=== PATIENT | male | born 1955 | race Caucasian/White ===

== ENCOUNTER 2018-08-21 14:42 | Inpatient (IN) ==
[2018-08-21] MEDS ORDERED: Isovue-370 500 ML INFUS..BTL IV ONE ×3 (17:20→22:22)
[2018-08-21] MEDS ORDERED: Naloxone 0.4 MG/ML INJ IVP PRN ×2 (17:25→22:22)
[2018-08-21] MEDS ORDERED: *HR* OxyCODONE Immed Rel 5 MG TABLET PO PRN ×2 (17:30→22:22)
[2018-08-21] MEDS ORDERED: Acetaminophen 325 MG TABLET PO PRN ×2 (17:30→22:22)
[2018-08-21] MEDS ORDERED: Ringers Solution, Lactated 1,000 ML IVC SCH (17:30)
[2018-08-21] MEDS ORDERED: *HR* HYDROcodone/Acet 5/325 mg TABLET PO PRN ×2 (17:30→22:22)
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
--- NOTE | 2018-08-21 17:56 | Anesthesia Evaluation PreOp ---
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) Other Medical History: Diabetes Type II, Other (hyponatremia, thrombocytopenia) Anesthesia History: Past Anesthesia (no prior surgery) Alcohol Use: none Drug use: none Medications and Allergies Divalproex (24 HR) [Depakote ER (24 HR)] 500 mg PO QAM 10/18/15 [History] Docusate [Colace] 100 mg PO AD PRN 10/18/15 [History] Acetaminophen [Tylenol] 650 mg PO Q6HR PRN 12/04/15 [History] Albuterol Sulfate [Ventolin Hfa] 2 puff IH Q6H PRN 12/04/15 [History] Doxycycline [Doxycycline] 100 mg PO DAILY 08/21/18 [History] Gemfibrozil [Lopid] 600 mg PO BID 08/21/18 [History] Haloperidol [Haloperidol] 1.5 mg PO TID 08/21/18 [History] Ibuprofen [Ibu] 800 mg PO Q8HR 08/21/18 [History] LORazepam [Ativan] 0.5 mg PO DAILY 08/21/18 [History] Lisinopril [Zestril] 5 mg PO DAILY 08/21/18 [History] Melatonin/Pyridoxine HCl (B6) [Melatonin 3 mg Tablet] 3 mg PO HS 08/21/18 [ History] Metformin HCl 500 mg PO DAILY 08/21/18 [History] Ranitidine HCl [Acid Ex Chef] 75 mg PO DAILY 08/21/18 [History] Sodium Chloride [Sodium Chloride Tab] 1 gm PO BID 08/21/18 [History] 3 Allergy/AdvReac Type Severity Reaction Status Date / Time No Known Allergies Allergy Verified 10/18/15 07:43 - Meds/Allergy Pre-op Review Medications Reviewed: Yes Allergies Reviewed: Yes Beta Blockers on Current Med List: No Anesthesia Results - Labs Laboratory Tests 08/21/18 08/21/18 12:30 12:30 WBC 18.5 H Hgb 11.7 L Hct 33.1 L Plt Count 68 L Sodium 121 L Potassium 4.3 BUN 18 Creatinine 0.91 - Imaging EKG: report reviewed (12/04/2015 SINUS RHYTHM WITH SINUS ARRHYTHMIA) Anesthesia Exam 3 Vital Signs BP 115/71 Pulse 88 Resp 20 O2 Sat 98% on O2 4L/NC Height: 5'8''/1.73m Weight: 173 lbs/78.7 kg - HEENT Pupil (Motor): EOMI Mallampati: III Teeth: Normal, Missing Denture Type: Upper: Complete Oral Opening: Greater than 3 - LARRY CAR OPERATOR LOC: Confused - Cardiac Rhythm: Regular Murmur: None - Pulmonary Breath Sounds: bilateral Clear Respiratory Effort: Symmetrical Anesthesia Assess/Plan ASA Score: 3 (Patient is cooperative and tranquil but confused. Consent obtained from guardian.) Anesthetic Plan: General Monitoring Plan: Standard Monitors Recovery Plan: PACU
[2018-08-21] MEDS ORDERED: Vancomycin (wt based) 1,000 MG VIAL IVPB SCH ×2 (18:00→22:22)
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
[2018-08-21] MEDS ORDERED: Albuterol 2.5 MG/3 ML NEBULIZER IH ONE (18:40)
[2018-08-21] MEDS ORDERED: Albuterol 2.5 MG/3 ML NEBULIZER ONE (18:42)
[2018-08-21] MEDS ORDERED: Bupivacaine/EPI 1:200k 0.5%PF 10 ML VIAL ONE (19:13)
[2018-08-21] MEDS ORDERED: Ondansetron 4 MG/2 ML VIAL IVP ONE ×2 (19:53→22:22)
[2018-08-21] MEDS ORDERED: *HR* HYDROmorphone (PF) 1 MG/ML SYRINGE IVP PRN ×2 (19:53→22:22)
[2018-08-21] MEDS ORDERED: *HR* Promethazine 25 MG/ML VIAL IVP PRN ×2 (19:53→22:22)
[2018-08-21] MEDS ORDERED: *HR* FentaNYL (PF) 100 MCG/2 ML VIAL ONE (19:59)
[2018-08-21] MEDS ORDERED: *HR* Propofol 200 MG/20 ML VIAL IVP ONE (19:59)
[2018-08-21] MEDS ORDERED: *HR* Midazolam HCl 2 MG/2 ML VIAL ONE (19:59)
[2018-08-21] MEDS ORDERED: *HR* Succinylcholine 200 MG/10 ML VIAL IVP ONE (20:01)
[2018-08-21] MEDS ORDERED: Dexamethasone 4 MG/ML VIAL ONE (20:01)
[2018-08-21] MEDS ORDERED: Lidocaine -MPF 2% 2 ML VIAL ONE (20:01)
[2018-08-21] MEDS ORDERED: *HR* PHENYLEPHRINE 1,000 MCG/10 ML SYRINGE IVP ONE (20:18)
[2018-08-21] MEDS ORDERED: Piperacillin/Tazobactam 3.375 GM in 0.9 % Sodium Chloride Mini Bag 100 ML IVPB SCH (21:00)
--- NOTE | 2018-08-21 21:27 | Orthopedic Operative Note ---
Date of procedure: 08/21/18 Procedure: OPERATIVE REPORT SURGEON: Isaac Dominguez MD PREOPERATIVE DIAGNOSIS: Left index finger necrotizing soft tissue infection POSTOPERATIVE DIAGNOSIS: Left index finger necrotizing soft tissue infection PROCEDURE: Left index ray amputation ANESTHESIA: Gen. anesthesia SPECIMENS: Left index ray PREOPERATIVE NOTE The surgical plan was reviewed with the patient. The risks, benefits, alternatives, and potential complications of this procedure were discussed with the patient including injury to veins, arteries, nerves, tendons, ligaments, and bone. Also discussed were the risks of infection, bleeding, pain, blood clots, the possible need for a blood transfusion, the possible need for further procedures, heart attack, stroke, and . Additional risks include the need for further debridement. All of this was explained in simple terms, and the patient verbalized understanding and wished to proceed. Consent was given to proceed with surgery. PROCEDURE: The patient was seen in the preoperative holding area where the identify and the consent were confirmed. The left index finger was marked. Final questions were answered. The patient was brought back to the operating room and placed supine on the operating room table. A huddle was performed with the patient and all vital surgical team members confirming patient identity, the correct procedure, and the correct operative site. Gen. anesthesia was administered. The operative extremity was prepped and draped in the usual sterile fashion. A surgical time out was performed immediately preceding the incision with all personnel in the operating room to confirm patient identity, the correct operative site and extremity, correct radiographic studies, availability of appropriate surgical equipment, and agreement on the planned procedure. The tourniquet was inflated without exsanguination. Attention was first directed to the dorsal aspect of the index finger where there was extensive dorsal necrotic skin which was incised longitudinally which decompressed copious amounts of purulent material which could also be milked from the dorsal hand. The incision was extended dorsally into the dorsal hand area draining copious amounts of foul-smelling purulent material which was cultured for aerobic and anaerobic organisms. Attention was redirected to the index finger where the dorsal skin was again evaluated and there was full-thickness necrosis which was sharply debrided back to healthy margins. Necrotic subcutaneous fat was debrided. The extensor apparatus distal to the PIP joint was necrotic and mostly dissolved by the infection and this was sharply debrided. There was involvement of the PIP joint as well. After all necrotic tissue was debrided back to healthy margins there is near complete loss of the dorsal skin of the index finger with complete exposure of the extensor apparatus proximal to the PIP joint. Given the significant soft tissue loss of the index finger (near complete loss of the dorsal skin and subcutaneous tissue), it was felt that salvage of the index finger would be impractical and would only prolong infection and illness to the patient, and the decision was made to proceed with amputation of the index ray which we had discussed prior to surgery as well. The extensor tendons were transected proximally in the dorsum of the hand and the index metacarpal was identified and cut with a sagittal saw distal to the insertion of the extensor carpi radialis longus. The first and second dorsal interosseous muscles were elevated off the index metacarpal and they were tenotomized at their insertions on the apparatus. Attention was directed to the volar side of the digit where a V-shaped was made over the metacarpophalangeal joint area and dissection proceeded carefully through subcutaneous tissue identifying the neurovascular bundles which were ligated. The flexor tendons were incised after being pulled distally to allow retraction and the index ray was from the hand and placed on the back table in formalin. The remaining soft tissue was healthy in appearance and there is no further necrotic tissue present in the hand. The wound was copiously irrigated and the incision was loosely closed over a [place] drain using interrupted nylon stitches with an excellent cosmetic appearance. A soft, sterile dressing was applied. The instrument, sponge, and needle counts were correct after wound closure. POST OPERATIVE PLAN: Continue IV antibiotics and follow cultures. We will keep the Coy drain until Saturday. Was there an congressional assistant present: No Estimated blood loss (cc): 1
--- NOTE | 2018-08-21 21:30 | Anesthesia Evaluation Post Op ---
Date of Encounter: 08/21/18 Time of Encounter: 21:28 - Lungs Lungs: Clear Ascult./Percussion - Airway Airway: Non-obstructed - Cardiovascular Regular Rate - Mental Status Mental Status: Alert & Oriented, Answers Appropriately - Pain Pain Scale: 0 Pain Scale used: Numeric (1 - 10) - Nausea Vomiting Nausea Vomiting: Not Present - Hydration Hydration: NPO, Has not voided - Discharge PostOp Status: Transfer Patient to floor
--- NOTE | 2018-08-21 22:50 | Sepsis Event Note ---
Sepsis Reassessment Note - Evaluation Sepsis Screen: No Definite Risk Current Stage of Sepsis: sepsis Possible Source of Sepsis: wound - Focused Exam Date of Encounter: 08/21/18 Time of Encounter: 22:50 Vital Signs: Vital Signs Temp Pulse Resp BP Pulse Ox 08/21/18 22:34 95 08/21/18 22:00 98.4 F 99 20 105/70 95 08/21/18 21:50 97 20 96/79 94 08/21/18 21:40 100 22 94/71 93 08/21/18 21:30 101 22 120/81 98 08/21/18 21:20 98.3 F 103 24 113/67 92 Respiratory Exam: Present: CTA bilaterally. Absent: wheezes, respiratory distress, accessory muscle use Cardiovascular Exam: Present: RRR, S1, S2. Absent: murmur, rubs, gallop Capillary Refill: < 2 seconds Peripheral Pulse Strength: 2+ slightly diminished Peripheral Pulse Location: Pedal Skin Exam: normal turgor
[2018-08-21 23:10] LABS: Red Cell Distribution Width 16.1 % (11.5-14.5)
[2018-08-21 23:11] LABS: Basophils % 0.3 %
[2018-08-21 23:12] LABS: Basophils # 0.1 K/mcL (0.0-0.2); Hematocrit 32.4 % (37.5-50.1); Immature Granulocytes % 1.8 % (0-4); Immature Platelets 16.9 % (1.1-6.1); Lymphocytes # 0.8 K/mcL (0.6-4.6); Lymphocytes % 4.1 %; Mean Corpuscular Hemoglobin 35.9 pg (28.0-33.3); Mean Corpuscular Volume 105.9 fL (83.0-100.0); Mean Platelet Volume 11.6 fL (9.4-12.4); Monocytes # 0.5 K/mcL (0.0-1.3); Monocytes % 2.7 %; Red Blood Count 3.06 M/mcL (4.19-5.50); Segmented Neutrophils % 91.1 %
[2018-08-21 23:27] LABS: BUN/Creatinine Ratio 20 (6-26); Blood Urea Nitrogen 14 mg/dL (8-23); Calcium 7.8 mg/dL (8.6-10.3); Carbon Dioxide 18 mEq/L (23-29); Chloride 98 mEq/L (98-107); Glucose 210 mg/dL (70-105); Osmolality,Calculated 265 (280-300); Potassium 5.1 mEq/L (3.5-5.1); Sodium 124 mEq/L (136-145); eGFR For Non-African Americans > 60 (> 60)
[2018-08-21] MEDS: Ringers Solution, Lactated 1,000 ML IVC SCH (23:36)
[2018-08-21] MEDS: *HR* Heparin 5,000 UNIT/ML VIAL SQ SCH (23:37)
[2018-08-21 23:45] LABS: Neutrophils # 17.9 K/mcL (1.6-8.9); Platelet Count 69 K/mcL (140-400)
[2018-08-21 23:51] LABS: Platelet Estimate Decreased (Normal)
[2018-08-22] MEDS ORDERED: *HR* Heparin 5,000 UNIT/ML VIAL SQ SCH
[2018-08-22] MEDS: Piperacillin/Tazobactam 3.375 GM in 0.9 % Sodium Chloride Mini Bag 100 ML IVPB SCH ×4 (00:18→23:37)
--- NOTE | 2018-08-22 08:08 | Orthopedics Progress Note ---
Date of Encounter: 08/22/18 Time of Encounter: 08:06 - Assessment and Plan (1) Cellulitis of left hand Current Visit: Yes Status: Acute Subjective Interval history: S: The patient is resting comfortably in bed Significant improvement of the pain to the left dorsal hand and wrist area O: Afebrile on the vital signs are stable Inspection shows improved swelling to the left hand Improvement in the erythema Penetrated place with minimal drainage No purulence He can grossly flex and extend the residual digits with some pain due to pain and swelling The fingertips are all grossly sensate and well-perfused, and the radial artery pulse is 2+. A: Postoperative day 1 after index ray resection due to necrotizing soft tissue infection P: Significant improvement of his symptoms. Continue IV antibiotics, broad-spectrum under the direction of the primary team Likely need at least 48 hours or more of IV antibiotics I did encourage range of motion exercises to the residual digits Elevation We will pull Coy drain tomorrow Objective Vital signs: Vital Signs Temp Pulse Resp BP Pulse Ox 08/22/18 07:18 98.3 F 98 16 107/61 94 08/22/18 04:31 97.6 F 105 18 105/57 96 08/22/18 01:20 97.8 F 86 18 111/79 94 08/22/18 00:20 97.8 F 88 18 111/71 95 08/21/18 23:20 97.8 F 93 18 111/75 94 08/21/18 22:50 97.6 F 92 19 101/70 95 08/21/18 22:34 95 08/21/18 22:20 97.9 F 94 20 108/69 94 08/21/18 22:00 98.4 F 99 20 105/70 95 08/21/18 21:50 97 20 96/79 94 08/21/18 21:40 100 22 94/71 93 08/21/18 21:30 101 22 120/81 98 08/21/18 21:20 98.3 F 103 24 113/67 92 Intake and Output 08/21/18 08/22/18 08/22/18 23:59 07:59 15:59 Intake Total 100 / 100 590 / 590 Output Total 251 / 251 Balance -151 / -151 590 / 590 Intake: IV Fluids 350 / 350 Zosyn 3.375 GM In 0.9 % Sodium 100 / 100 Chloride (Mini-Bag +) 100 ML @ 25 mls/hr IVPB Q8H [facility] Rx#: [id number] Vancocin 1,250 MG In 0.9 % 250 / 250 Sodium Chloride 250 ML @ 166.67 mls/hr IVPB Q12H [facility] Rx#: [id number] Oral 100 / 100 240 / 240 Output: Urine 250 / 250 Estimated Blood Loss Other: # Voids 1 1 Weight 78.7 kg 78.6 kg Patient Weight 08/22/18 23:59 Weight 78.6 kg - Labs CBC & BMP: 08/21/18 22:50 08/21/18 22:50 Labs: Abnormal lab results WBC 19.6 K/mcL (4.3-11.1) H 08/21/18 22:50 RBC 3.06 M/mcL (4.19-5.50) L 08/21/18 22:50 Hgb 11.0 g/dL (12.9-16.9) L 08/21/18 22:50 Hct 32.4 % (37.5-50.1) L 08/21/18 22:50 MCV 105.9 fL (83.0-100.0) H 08/21/18 22:50 MCH 35.9 pg (28.0-33.3) H 08/21/18 22:50 RDW 16.1 % (11.5-14.5) H 08/21/18 22:50 Plt Count 69 K/mcL (140-400) L 08/21/18 22:50 Neutrophils # 17.9 K/mcL (1.6-8.9) H 08/21/18 22:50 Platelet Estimate Decreased (Normal) L 08/21/18 22:50 Immature Plt Fraction 16.9 % (1.1-6.1) H 08/21/18 22:50 Sodium 124 mEq/L (136-145) L 08/21/18 22:50 Carbon Dioxide 18 mEq/L (23-29) L 08/21/18 22:50 Glucose 210 mg/dL (70-105) H 08/21/18 22:50 Calculated Osmolality 265 (280-300) L 08/21/18 22:50 Calcium 7.8 mg/dL (8.6-10.3) L 08/21/18 22:50 Consult Discharge Plan - Plan Referrals: Anson Mehta MD [Primary Care Provider] -
[2018-08-22] MEDS: *HR* Heparin 5,000 UNIT/ML VIAL SQ SCH ×3 (09:24→23:37)
[2018-08-22] MEDS ORDERED: *HR* Dextrose 50 % in Water (Syg) 50 ML SYRINGE IVP PRN (12:36)
[2018-08-22] MEDS ORDERED: D5% in Water 1,000 ML IVC PRN (12:36)
[2018-08-22] MEDS ORDERED: Dextrose Gel 15 GM/37.5 ML TUBE PO PRN ×2 (12:36)
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
[2018-08-22 15:08] LABS: Hematocrit 29.5 % (37.5-50.1); Mean Corpuscular HGB Conc 33.9 g/dL (31.6-35.5)
[2018-08-22 15:10] LABS: Immature Platelets 16.3 % (1.1-6.1); Mean Corpuscular Hemoglobin 35.5 pg (28.0-33.3); Mean Corpuscular Volume 104.6 fL (83.0-100.0); Mean Platelet Volume 11.6 fL (9.4-12.4); Red Blood Count 2.82 M/mcL (4.19-5.50); Red Cell Distribution Width 16.1 % (11.5-14.5)
[2018-08-22 15:21] LABS: Platelet Count 87 K/mcL (140-400)
[2018-08-22 15:27] LABS: BUN/Creatinine Ratio 25 (6-26); Blood Urea Nitrogen 15 mg/dL (8-23); C-Reactive Protein 237 mg/L (Less than 10); Calcium 7.8 mg/dL (8.6-10.3); Carbon Dioxide 21 mEq/L (23-29); Chloride 95 mEq/L (98-107); Creatine Kinase 147 Units/L (30-223); Glucose 234 mg/dL (70-105); Osmolality,Calculated 266 (280-300); Potassium 4.3 mEq/L (3.5-5.1); Sodium 124 mEq/L (136-145); eGFR For Non-African Americans > 60 (> 60)
[2018-08-22 15:39] LABS: Lymphocytes # 2.7 K/mcL (0.6-4.6); Neutrophils # 13.7 K/mcL (1.6-8.9)
[2018-08-22 15:41] LABS: Platelet Estimate Slight Decrease (Normal)
[2018-08-22 15:47] LABS: Anisocytosis 1+ (Not Present)
[2018-08-22] MEDS ORDERED: Ibuprofen 800 MG TABLET PO SCH (16:00)
[2018-08-22] MEDS: Insulin LISPRO 300 UNITS/3 ML VIAL SQ SCH ×2 (17:06→20:24)
[2018-08-22] MEDS: Famotidine 20 MG TABLET PO SCH (17:06)
[2018-08-22] MEDS: Melatonin 3 MG TABLET PO SCH (20:23)
[2018-08-22] MEDS: Divalproex (24 HR) 500 MG TABLET PO SCH (20:24)
[2018-08-22] MEDS: Budesonide/Formoterol 160/4.5 1 PUFF INH IH SCH (22:18)
[2018-08-23 01:15] LABS: Hematocrit 28.5 % (37.5-50.1); Hemoglobin 9.7 g/dL (12.9-16.9); Mean Corpuscular Hemoglobin 35.3 pg (28.0-33.3); Mean Corpuscular Volume 103.6 fL (83.0-100.0); Mean Platelet Volume 11.5 fL (9.4-12.4); Red Blood Count 2.75 M/mcL (4.19-5.50); Red Cell Distribution Width 16.2 % (11.5-14.5)
[2018-08-23 01:16] LABS: Platelet Count 67 K/mcL (140-400)
[2018-08-23 01:30] LABS: Platelet Estimate Decreased (Normal)
[2018-08-23 01:33] LABS: Large Platelets Present (Not Present); Lymphocytes # 3.3 K/mcL (0.6-4.6); Monocytes # 0.6 K/mcL (0.0-1.3); Neutrophils # 11.1 K/mcL (1.6-8.9); Reactive Lymphocytes Present (Not Present)
[2018-08-23 01:43] LABS: BUN/Creatinine Ratio 23 (6-26); Blood Urea Nitrogen 15 mg/dL (8-23); Calcium 7.8 mg/dL (8.6-10.3); Carbon Dioxide 22 mEq/L (23-29); Chloride 97 mEq/L (98-107); Glucose 173 mg/dL (70-105); Osmolality,Calculated 267 (280-300); Potassium 4.3 mEq/L (3.5-5.1); Sodium 126 mEq/L (136-145); eGFR For Non-African Americans > 60 (> 60)
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
[2018-08-23] MEDS: Ringers Solution, Lactated 1,000 ML IVC SCH (07:57)
[2018-08-23] MEDS: Famotidine 20 MG TABLET PO SCH ×2 (08:04→16:25)
[2018-08-23] MEDS: *HR* LORazepam 0.5 MG TABLET PO SCH (08:04)
[2018-08-23] MEDS: *HR* Heparin 5,000 UNIT/ML VIAL SQ SCH ×2 (08:05→16:26)
[2018-08-23] MEDS: Piperacillin/Tazobactam 3.375 GM in 0.9 % Sodium Chloride Mini Bag 100 ML IVPB SCH ×2 (08:05→16:26)
[2018-08-23] MEDS: Insulin LISPRO 300 UNITS/3 ML VIAL SQ SCH ×4 (08:06→22:00)
[2018-08-23] MEDS: Budesonide/Formoterol 160/4.5 1 PUFF INH IH SCH ×2 (10:38→20:13)
--- NOTE | 2018-08-23 15:04 | Orthopedics Progress Note ---
Date of Encounter: 08/23/18 Time of Encounter: 15:00 Subjective Principal diagnosis: Right hand abscess with index finger necrotizing infection Interval history: The patient is resting comfortably in chair No complaints of pain Right upper extremity: Ulnar gutter cast is intact, good motion of exposed digits. Left upper extremity: Dressings taken down and drains pulled, amputation stump appears intact mild swelling to the left hand Moderate erythema mild purulent drainage He can grossly flex and extend the residual digits with some pain due to pain and swelling The fingertips are all grossly sensate and well-perfused, although some pallor noted in all fingers A: Postoperative day 2 after index ray resection due to necrotizing soft tissue infection Cultures, gram-positive cocci P: Significant improvement of his symptoms. Continue IV antibiotics, broad-spectrum under the direction of the primary team Start soap and water washers, 3 times a day I did encourage range of motion exercises to the residual digits Elevation Objective Vital signs: Vital Signs Temp Pulse Resp BP Pulse Ox 08/23/18 10:59 98.2 F 78 16 147/74 93 08/23/18 10:39 91 08/23/18 07:20 97.6 F 82 16 148/85 90 08/23/18 04:40 98.4 F 90 16 108/68 97 08/23/18 00:18 99.1 F 88 16 99/54 90 08/22/18 20:30 98 08/22/18 18:48 98.7 F 84 16 113/68 98 Intake and Output 08/22/18 08/23/18 08/23/18 23:59 07:59 15:59 Intake Total 100 / 100 590 / 590 340 / 340 Output Total 250 / 250 400 / 400 Balance -150 / -150 190 / 190 340 / 340 Intake: IV Fluids 100 / 100 350 / 350 100 / 100 Zosyn 3.375 GM In 0.9 % Sodium 100 / 100 100 / 100 100 / 100 Chloride (Mini-Bag +) 100 ML @ 25 mls/hr IVPB Q8H [facility] Rx#: [id number] Vancocin 1,250 MG In 0.9 % 250 / 250 Sodium Chloride 250 ML @ 166.67 mls/hr IVPB Q12H [facility] Rx#: [id number] Oral 240 / 240 240 / 240 Output: Urine 250 / 250 400 / 400 Other: Meal Lunch Percent of Meal Consumed 80% Stool Size Large Moderate Stool Consistency formed soft formed Stool Color Brown # Voids 1 1 # Bowel Movements 1 1 Weight 78.9 kg Blood Glucose* 207 305 172 Patient Weight 08/23/18 23:59 Weight 78.9 kg - Labs CBC & BMP: 08/23/18 00:56 08/23/18 00:56 Labs: Abnormal lab results WBC 15.0 K/mcL (4.3-11.1) H 08/23/18 00:56 RBC 2.75 M/mcL (4.19-5.50) L 08/23/18 00:56 Hgb 9.7 g/dL (12.9-16.9) L 08/23/18 00:56 Hct 28.5 % (37.5-50.1) L 08/23/18 00:56 MCV 103.6 fL (83.0-100.0) H 08/23/18 00:56 MCH 35.3 pg (28.0-33.3) H 08/23/18 00:56 RDW 16.2 % (11.5-14.5) H 08/23/18 00:56 Plt Count 67 K/mcL (140-400) L 08/23/18 00:56 Band Neutrophils % 6.0 % (0-4) H 08/22/18 14:35 Metamyelocytes % 2.0 % (0) H 08/22/18 14:35 Myelocytes % 2.0 % (0) H 08/22/18 14:35 Neutrophils # 11.1 K/mcL (1.6-8.9) H 08/23/18 00:56 Reactive Lymphocytes Present (Not Present) A 08/23/18 00:56 Platelet Estimate Decreased (Normal) L 08/23/18 00:56 Large Platelets Present (Not Present) A 08/23/18 00:56 Immature Plt Fraction 16.3 % (1.1-6.1) H 08/22/18 14:35 Anisocytosis 1+ (Not Present) A 08/22/18 14:35 ESR 84 mm/hr (0-10) H 08/22/18 14:35 Sodium 126 mEq/L (136-145) L 08/23/18 00:56 Chloride 97 mEq/L (98-107) L 08/23/18 00:56 Carbon Dioxide 22 mEq/L (23-29) L 08/23/18 00:56 Creatinine 0.66 mg/dL (0.70-1.30) L 08/23/18 00:56 Glucose 173 mg/dL (70-105) H 08/23/18 00:56 POC Glucose 172 mg/dL (70-99) H 08/23/18 10:57 Calculated Osmolality 267 (280-300) L 08/23/18 00:56 Calcium 7.8 mg/dL (8.6-10.3) L 08/23/18 00:56 C-Reactive Protein 237 mg/L (Less than 10) H 08/22/18 14:35 Consult Discharge Plan - Plan Referrals: Anson Mehta MD [Primary Care Provider] -
[2018-08-23] MEDS: Melatonin 3 MG TABLET PO SCH (21:58)
[2018-08-23] MEDS: Divalproex (24 HR) 500 MG TABLET PO SCH (21:58)
[2018-08-24] MEDS: Piperacillin/Tazobactam 3.375 GM in 0.9 % Sodium Chloride Mini Bag 100 ML IVPB SCH ×3 (01:20→17:04)
[2018-08-24] MEDS: *HR* Heparin 5,000 UNIT/ML VIAL SQ SCH ×4 (01:20→23:34)
[2018-08-24 07:22] LABS: Red Cell Distribution Width 15.7 % (11.5-14.5)
[2018-08-24 07:23] LABS: Hematocrit 30.9 % (37.5-50.1); Hemoglobin 10.2 g/dL (12.9-16.9); Immature Platelets 16.6 % (1.1-6.1); Mean Corpuscular Hemoglobin 34.6 pg (28.0-33.3); Mean Corpuscular Volume 104.7 fL (83.0-100.0); Mean Platelet Volume 11.5 fL (9.4-12.4); Red Blood Count 2.95 M/mcL (4.19-5.50)
[2018-08-24 07:46] LABS: BUN/Creatinine Ratio 17 (6-26); Blood Urea Nitrogen 9 mg/dL (8-23); Calcium 8.2 mg/dL (8.6-10.3); Carbon Dioxide 22 mEq/L (23-29); Chloride 95 mEq/L (98-107); Glucose 163 mg/dL (70-105); Magnesium 1.5 mg/dL (1.6-2.6); Osmolality,Calculated 264 (280-300); Potassium 4.1 mEq/L (3.5-5.1); Sodium 126 mEq/L (136-145); eGFR For Non-African Americans > 60 (> 60)
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
[2018-08-24] MEDS: *HR* LORazepam 0.5 MG TABLET PO SCH (08:21)
[2018-08-24] MEDS: Famotidine 20 MG TABLET PO SCH ×2 (08:21→17:01)
[2018-08-24] MEDS: Insulin LISPRO 300 UNITS/3 ML VIAL SQ SCH ×4 (08:27→22:27)
[2018-08-24] MEDS: Budesonide/Formoterol 160/4.5 1 PUFF INH IH SCH ×2 (10:23→20:15)
--- NOTE | 2018-08-24 10:59 | Orthopedics Progress Note ---
Date of Encounter: 08/24/18 Time of Encounter: 10:56 Subjective Principal diagnosis: Right hand abscess with index finger necrotizing infection Interval history: The patient is resting comfortably in chair No complaints of pain Right upper extremity: Ulnar gutter cast is intact, good motion of exposed digits. Left upper extremity: Dressings taken down, and moderate serosanguineous drainage, no purulent drainage The surgical wound is otherwise intact. Still has moderate erythema and swelling on dorsum of hand mild purulent drainage He can grossly flex and extend the residual digits with some pain due to pain and swelling The fingertips are all grossly sensate and well-perfused, although some pallor noted in all fingers A: Postoperative day 3 after index ray resection due to necrotizing soft tissue infection Improving clinically but cellulitis is still fairly angry appearing Cultures: Strep intermedius P: Tailor IV antibiotics Continue soap and water washers, 3 times a day I did encourage range of motion exercises to the residual digits Elevation Possible discharge tomorrow Objective Vital signs: Vital Signs Temp Pulse Resp BP Pulse Ox 08/24/18 10:25 16 94 08/24/18 07:17 98.4 F 68 16 112/72 91 08/24/18 03:30 99.0 F 71 17 146/81 96 08/23/18 22:13 99.2 F 72 16 142/77 99 08/23/18 20:13 18 92 08/23/18 18:45 97.8 F 77 18 125/68 96 08/23/18 16:13 83 16 122/76 93 08/23/18 10:59 98.2 F 78 16 147/74 93 Intake and Output 08/23/18 08/24/18 08/24/18 23:59 07:59 15:59 Intake Total 100 / 100 440 / 440 250 / 250 Output Total 350 / 350 400 / 400 Balance -250 / -250 440 / 440 -150 / -150 Intake: IV Fluids 100 / 100 100 / 100 Zosyn 3.375 GM In 0.9 % Sodium 100 / 100 100 / 100 Chloride (Mini-Bag +) 100 ML @ 25 mls/hr IVPB Q8H [facility] Rx#: [id number] Oral 0 / 0 340 / 340 250 / 250 Output: Urine 350 / 350 400 / 400 Other: Meal Breakfast Percent of Meal Consumed 50% Stool Size Small Large Stool Consistency liquid loose Stool Color Brown Brown # Voids 1 1 # Bowel Movements 1 Blood Glucose* 243 219 - Labs CBC & BMP: 08/24/18 06:28 08/24/18 06:28 Labs: Abnormal lab results RBC 2.95 M/mcL (4.19-5.50) L 08/24/18 06:28 Hgb 10.2 g/dL (12.9-16.9) L 08/24/18 06:28 Hct 30.9 % (37.5-50.1) L 08/24/18 06:28 MCV 104.7 fL (83.0-100.0) H 08/24/18 06:28 MCH 34.6 pg (28.0-33.3) H 08/24/18 06:28 RDW 15.7 % (11.5-14.5) H 08/24/18 06:28 Plt Count 82 K/mcL (140-400) L 08/24/18 06:28 Band Neutrophils % 6.0 % (0-4) H 08/22/18 14:35 Metamyelocytes % 2.0 % (0) H 08/22/18 14:35 Myelocytes % 2.0 % (0) H 08/22/18 14:35 Neutrophils # 11.1 K/mcL (1.6-8.9) H 08/23/18 00:56 Reactive Lymphocytes Present (Not Present) A 08/23/18 00:56 Platelet Estimate Decreased (Normal) L 08/23/18 00:56 Large Platelets Present (Not Present) A 08/23/18 00:56 Immature Plt Fraction 16.6 % (1.1-6.1) H 08/24/18 06:28 Anisocytosis 1+ (Not Present) A 08/22/18 14:35 ESR 84 mm/hr (0-10) H 08/22/18 14:35 Sodium 126 mEq/L (136-145) L 08/24/18 06:28 Chloride 95 mEq/L (98-107) L 08/24/18 06:28 Carbon Dioxide 22 mEq/L (23-29) L 08/24/18 06:28 Creatinine 0.54 mg/dL (0.70-1.30) L 08/24/18 06:28 Glucose 163 mg/dL (70-105) H 10/14/18 06:28 POC Glucose 219 mg/dL (70-99) H 08/24/18 07:16 Calculated Osmolality 264 (280-300) L 08/24/18 06:28 Calcium 8.2 mg/dL (8.6-10.3) L 08/24/18 06:28 Magnesium 1.5 mg/dL (1.6-2.6) L 08/24/18 06:28 C-Reactive Protein 237 mg/L (Less than 10) H 08/22/18 14:35 Consult Discharge Plan - Plan Referrals: Anson Mehta MD [Primary Care Provider] -
[2018-08-24] MEDS ORDERED: cefTRIAXone 2,000 MG in Water for inj. (sterile) 20 ML 20 ML IVP SCH (18:00)
[2018-08-24] MEDS: Melatonin 3 MG TABLET PO SCH (22:27)
[2018-08-24] MEDS: Divalproex (24 HR) 500 MG TABLET PO SCH (22:27)
[2018-08-25 03:43] LABS: Hematocrit 30.9 % (37.5-50.1); Hemoglobin 10.4 g/dL (12.9-16.9); Immature Platelets 14.6 % (1.1-6.1); Mean Corpuscular HGB Conc 33.7 g/dL (31.6-35.5); Mean Corpuscular Hemoglobin 34.9 pg (28.0-33.3); Mean Corpuscular Volume 103.7 fL (83.0-100.0); Mean Platelet Volume 11.6 fL (9.4-12.4); Red Blood Count 2.98 M/mcL (4.19-5.50); Red Cell Distribution Width 15.6 % (11.5-14.5)
[2018-08-25 03:55] LABS: Alanine Aminotransferase 43 Units/L (7-52); Albumin 2.9 g/dL (3.5-5.7); Alkaline Phosphatase 50 Units/L (34-104); Aspartate Amino Transferase 25 Units/L (13-39); BUN/Creatinine Ratio 16 (6-26); Bilirubin,Total 0.3 mg/dL (0.3-1.0); Blood Urea Nitrogen 10 mg/dL (8-23); Calcium 8.4 mg/dL (8.6-10.3); Carbon Dioxide 25 mEq/L (23-29); Chloride 96 mEq/L (98-107); Globulin 2.9 g/dL (2.4-3.5); Glucose 140 mg/dL (70-105); Magnesium 1.6 mg/dL (1.6-2.6); Osmolality,Calculated 267 (280-300); Potassium 4.2 mEq/L (3.5-5.1); Sodium 128 mEq/L (136-145); Total Protein 5.8 g/dL (6.4-8.9); eGFR For Non-African Americans > 60 (> 60)
--- NOTE | 2018-08-25 08:15 | Orthopedics Progress Note ---
Date of Encounter: 08/25/18 Time of Encounter: 08:12 - Assessment and Plan (1) Cellulitis of left hand Current Visit: Yes Status: Acute Subjective Principal diagnosis: Right hand abscess with index finger necrotizing infection Interval history: S: The patient is resting comfortably in a chair Significant improvement of the pain to the left dorsal hand and wrist area over the weekend O: Afebrile on the vital signs are stable Persistent cellulitis, but improved from Saturday I could milk a small amount of purulence proximally, and therefore I removed a couple of the proximal stitches to decompress it and cleansed with peroxide He can grossly flex and extend the residual digits with some pain due to pain and swelling The fingertips are all grossly sensate and well-perfused, and the radial artery pulse is 2+. A: Post left index ray resection for soft tissue infection P: Notable improvement in the CRP and WBC count Celluitis slow to improve Anticipate about 24 more hours of IV Abx If continued pus tomorrow, may do 2nd look I and D tomorrow Continue elevation and motion exercises. Objective Vital signs: Vital Signs Temp Pulse Resp BP Pulse Ox 08/25/18 07:48 98.2 F 68 16 130/77 98 08/25/18 04:53 98.6 F 69 18 134/69 98 08/25/18 00:33 98.1 F 75 17 141/71 94 08/24/18 20:17 98.6 F 78 17 115/65 98 08/24/18 20:15 16 99 08/24/18 16:55 97.5 F L 72 16 146/76 91 08/24/18 11:14 97.4 F L 67 14 130/71 95 08/24/18 10:25 16 94 Intake and Output 08/24/18 08/25/18 08/25/18 23:59 07:59 15:59 Intake Total 240 / 240 224 / 224 Output Total 250 / 250 Balance -10 - 224 / 224 Intake: IV Fluids 224 / 224 Rocephin 2,000 MG In Water for inj. (sterile) 20 ML @ 600 mls/ hr IVP Q24H [facility] Rx#:[id number] Oral 240 / 240 Output: Urine 250 / 250 Other: Meal Dinner Percent of Meal Consumed 70% Stool Size Moderate Stool Consistency soft Stool Characteristics Normal for Patient Stool Color Brown # Voids 1 1 # Bowel Movements 1 Blood Glucose* 188 142 - Labs CBC & BMP: 08/25/18 03:24 08/25/18 03:24 Labs: Abnormal lab results RBC 2.98 M/mcL (4.19-5.50) L 08/25/18 03:24 Hgb 10.4 g/dL (12.9-16.9) L 08/25/18 03:24 Hct 30.9 % (37.5-50.1) L 08/25/18 03:24 MCV 103.7 fL (83.0-100.0) H 08/25/18 03:24 MCH 34.9 pg (28.0-33.3) H 08/25/18 03:24 RDW 15.6 % (11.5-14.5) H 08/25/18 03:24 Plt Count 75 K/mcL (140-400) L 08/25/18 03:24 Band Neutrophils % 6.0 % (0-4) H 08/22/18 14:35 Metamyelocytes % 2.0 % (0) H 08/22/18 14:35 Myelocytes % 2.0 % (0) H 08/22/18 14:35 Neutrophils # 11.1 K/mcL (1.6-8.9) H 08/23/18 00:56 Reactive Lymphocytes Present (Not Present) A 08/23/18 00:56 Platelet Estimate Decreased (Normal) L 08/23/18 00:56 Large Platelets Present (Not Present) A 08/23/18 00:56 Immature Plt Fraction 14.6 % (1.1-6.1) H 08/25/18 03:24 Anisocytosis 1+ (Not Present) A 08/22/18 14:35 ESR 72 mm/hr (0-10) H 08/24/18 13:49 Sodium 128 mEq/L (136-145) L 08/25/18 03:24 Chloride 96 mEq/L (98-107) L 08/25/18 03:24 Creatinine 0.61 mg/dL (0.70-1.30) L 08/25/18 03:24 Glucose 140 mg/dL (70-105) H 08/25/18 03:24 POC Glucose 188 mg/dL (70-99) H 08/24/18 20:16 Calculated Osmolality 267 (280-300) L 08/25/18 03:24 Calcium 8.4 mg/dL (8.6-10.3) L 08/25/18 03:24 C-Reactive Protein 51 mg/L (Less than 10) H 08/24/18 13:49 Serum Total Protein 5.8 g/dL (6.4-8.9) L 08/25/18 03:24 Albumin 2.9 g/dL (3.5-5.7) L 08/25/18 03:24 Albumin/Globulin Ratio 1.0 (1.1-2.2) L 08/25/18 03:24 Consult Discharge Plan - Plan Referrals: Anson Mehta MD [Primary Care Provider] -
[2018-08-25] MEDS: Famotidine 20 MG TABLET PO SCH ×2 (08:36→16:39)
[2018-08-25] MEDS: *HR* Heparin 5,000 UNIT/ML VIAL SQ SCH ×2 (08:36→16:38)
[2018-08-25] MEDS: *HR* LORazepam 0.5 MG TABLET PO SCH (08:36)
[2018-08-25] MEDS: Insulin LISPRO 300 UNITS/3 ML VIAL SQ SCH ×4 (08:37→22:36)
[2018-08-25] MEDS: Budesonide/Formoterol 160/4.5 1 PUFF INH IH SCH ×2 (10:30→19:42)
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
[2018-08-25] MEDS: Piperacillin/Tazobactam 3.375 GM in 0.9 % Sodium Chloride Mini Bag 100 ML IVPB SCH ×2 (13:50→21:10)
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
[2018-08-25] MEDS: Divalproex (24 HR) 500 MG TABLET PO SCH (21:09)
[2018-08-25] MEDS: Melatonin 3 MG TABLET PO SCH (21:09)
[2018-08-26] MEDS: *HR* Heparin 5,000 UNIT/ML VIAL SQ SCH ×4 (00:23→23:43)
[2018-08-26] MEDS: Piperacillin/Tazobactam 3.375 GM in 0.9 % Sodium Chloride Mini Bag 100 ML IVPB SCH ×2 (05:49→13:23)
[2018-08-26 06:04] LABS: Hematocrit 30.6 % (37.5-50.1); Immature Granulocytes % 0.7 % (0-4)
[2018-08-26 06:06] LABS: Basophils % 0.3 %; Eosinophils # 0.1 K/mcL (0.0-0.6); Eosinophils % 0.9 %; Hemoglobin 10.4 g/dL (12.9-16.9); Immature Platelets 15.8 % (1.1-6.1); Lymphocytes # 2.3 K/mcL (0.6-4.6); Lymphocytes % 32.9 %; Mean Corpuscular Hemoglobin 34.7 pg (28.0-33.3); Mean Platelet Volume 11.8 fL (9.4-12.4); Monocytes # 0.6 K/mcL (0.0-1.3); Monocytes % 8.2 %; Nucleated Red Blood Cells 0.4 /100 WBC (0); Red Cell Distribution Width 15.6 % (11.5-14.5)
[2018-08-26 06:08] LABS: Platelet Count 85 K/mcL (140-400)
[2018-08-26 06:27] LABS: BUN/Creatinine Ratio 15 (6-26); Blood Urea Nitrogen 8 mg/dL (8-23); Calcium 8.5 mg/dL (8.6-10.3); Carbon Dioxide 24 mEq/L (23-29); Chloride 96 mEq/L (98-107); Glucose 156 mg/dL (70-105); Osmolality,Calculated 268 (280-300); Sodium 128 mEq/L (136-145); eGFR For Non-African Americans > 60 (> 60)
[2018-08-26] MEDS ORDERED: Aminoglycoside Consult 1 EACH MC ONE (07:28)
[2018-08-26] MEDS: Budesonide/Formoterol 160/4.5 1 PUFF INH IH SCH ×2 (07:39→21:53)
--- NOTE | 2018-08-26 08:23 | Orthopedics Progress Note ---
Date of Encounter: 08/26/18 Time of Encounter: 08:21 - Assessment and Plan (1) Cellulitis of left hand Current Visit: Yes Status: Acute Subjective Principal diagnosis: Right hand abscess with index finger necrotizing infection Interval history: S: The patient is resting comfortably in a chair Expected pain to the left hand O: Afebrile on the vital signs are stable Persistent cellulitis similar to yesterday Persistent swelling to the left hand Continued purulence from the proximal portion of the wound He can grossly flex and extend the residual digits with some pain due to pain and swelling The fingertips are all grossly sensate and well-perfused, and the radial artery pulse is 2+. No significant change and CRP A: Post left index ray resection for soft tissue infection P: Keep nothing by mouth We will plan on second look I&D of the left hand later today due to persistent purulent drainage and no improvement in the CRP and persistent cellulitis and swelling Objective Vital signs: Vital Signs Temp Pulse Resp BP Pulse Ox 08/26/18 08:00 98.8 F 69 18 137/63 91 08/26/18 07:41 18 95 08/26/18 05:02 98.1 F 80 17 122/72 96 08/25/18 23:54 98.1 F 73 16 118/72 91 08/25/18 19:44 18 92 08/25/18 18:27 97.9 F 79 17 116/66 92 08/25/18 15:41 98.4 F 84 16 129/81 95 08/25/18 11:46 98.2 F 79 16 136/77 93 08/25/18 10:30 16 93 08/25/18 08:48 98 Intake and Output 08/25/18 08/26/18 08/26/18 23:59 07:59 15:59 Intake Total 1080 / 1080 100 / 100 Output Total 300 / 300 Balance 1080 / 1080 -200 / -200 Intake: IV Fluids 100 / 100 100 / 100 Zosyn 3.375 GM In 0.9 % Sodium 100 / 100 100 / 100 Chloride (Mini-Bag +) 100 ML @ 25 mls/hr IVPB Q8H DAVI Rx#: [id number] Oral 980 / 980 Output: Urine 300 / 300 Other: Meal Dinner Percent of Meal Consumed 5% # Voids 1 1 Blood Glucose* 215 - Labs CBC & BMP: 08/26/18 05:38 10/16/18 05:38 Labs: Abnormal lab results RBC 3.00 M/mcL (4.19-5.50) L 08/26/18 05:38 Hgb 10.4 g/dL (12.9-16.9) L 08/26/18 05:38 Hct 30.6 % (37.5-50.1) L 08/26/18 05:38 MCV 102.0 fL (83.0-100.0) H 08/26/18 05:38 MCH 34.7 pg (28.0-33.3) H 08/26/18 05:38 RDW 15.6 % (11.5-14.5) H 08/26/18 05:38 Plt Count 85 K/mcL (140-400) L 08/26/18 05:38 Band Neutrophils % 6.0 % (0-4) H 08/22/18 14:35 Metamyelocytes % 2.0 % (0) H 08/22/18 14:35 Myelocytes % 2.0 % (0) H 08/22/18 14:35 Nucleated RBCs/100 WBC 0.4 /100 WBC (0) H 08/26/18 05:38 Reactive Lymphocytes Present (Not Present) A 08/23/18 00:56 Platelet Estimate Decreased (Normal) L 08/23/18 00:56 Large Platelets Present (Not Present) A 08/23/18 00:56 Immature Plt Fraction 15.8 % (1.1-6.1) H 08/26/18 05:38 Anisocytosis 1+ (Not Present) A 08/22/18 14:35 ESR 65 mm/hr (0-10) H 08/26/18 05:38 Sodium 128 mEq/L (136-145) L 08/26/18 05:38 Chloride 96 mEq/L (98-107) L 08/26/18 05:38 Creatinine 0.55 mg/dL (0.70-1.30) L 08/26/18 05:38 Glucose 156 mg/dL (70-105) H 08/26/18 05:38 POC Glucose 157 mg/dL (70-99) H 08/25/18 17:08 Calculated Osmolality 268 (280-300) L 08/26/18 05:38 Calcium 8.5 mg/dL (8.6-10.3) L 08/26/18 05:38 C-Reactive Protein 53 mg/L (Less than 10) H 08/26/18 05:38 Serum Total Protein 5.8 g/dL (6.4-8.9) L 08/25/18 03:24 Albumin 2.9 g/dL (3.5-5.7) L 08/25/18 03:24 Albumin/Globulin Ratio 1.0 (1.1-2.2) L 08/25/18 03:24 Consult Discharge Plan - Plan Referrals: Anson Mehta MD [Primary Care Provider] -
[2018-08-26] MEDS: Famotidine 20 MG TABLET PO SCH ×2 (09:05→17:03)
[2018-08-26] MEDS: Insulin LISPRO 300 UNITS/3 ML VIAL SQ SCH ×4 (09:05→21:46)
[2018-08-26] MEDS: *HR* LORazepam 0.5 MG TABLET PO SCH ×2 (09:09→11:27)
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
[2018-08-26] MEDS ORDERED: Lidocaine -MPF 1% 5 ML AMPUL INFILT ONE (14:13)
[2018-08-26] MEDS: metroNIDAZOLE 500 MG TABLET PO SCH ×2 (15:11→21:46)
[2018-08-26] MEDS: cefTRIAXone 2,000 MG in 0.9 % Sodium Chloride Mini Bag 100 ML IVPB SCH (15:13)
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
--- NOTE | 2018-08-26 18:38 | Anesthesia Evaluation PreOp ---
Date of Encounter: 08/26/18 Time of Encounter: 18:35 - Past History Planned Operation: I & D hand Cardiac History: HTN, Hyperlipidemia Pulmonary History: Smoker, COPD BOOM MAN History: Other (Dementia, Schizophrenia) Other Medical History: Diabetes Type II, GERD, Other (Hyponatremia, thrombocytopenia) Anesthesia History: Past Anesthesia (I&D L-hand 08/21/2018) Alcohol Use: none Drug use: none Medications and Allergies Divalproex (24 HR) [Depakote ER (24 HR)] 500 mg PO HS 10/18/15 [History] Docusate [Colace] 100 mg PO AD PRN 10/18/15 [History] Acetaminophen [Tylenol] 650 mg PO Q6HR PRN 12/04/15 [History] Albuterol Sulfate [Ventolin Hfa] 2 puff IH Q6H PRN 12/04/15 [History] Doxycycline [Doxycycline] 100 mg PO BID 08/21/18 [History] Gemfibrozil [Lopid] 600 mg PO BID 08/21/18 [History] Haloperidol [Haloperidol] 1.5 mg PO TID 08/21/18 [History] Ibuprofen [Ibu] 800 mg PO Q8HR 08/21/18 [History] LORazepam [Ativan] 0.5 mg PO DAILY 08/21/18 [History] Lisinopril [Zestril] 5 mg PO DAILY 08/21/18 [History] Metformin HCl 500 mg PO DAILY 08/21/18 [History] Ranitidine HCl [Acid No Experience] 75 mg PO Q12H 08/21/18 [History] Sodium Chloride [Sodium Chloride Tab] 1 gm PO BID 08/21/18 [History] Fluticasone/Salmeterol [Advair 500-50 Diskus] 1 puff IH BID 08/22/18 [History] Gemfibrozil [Gemfibrozil] 600 mg PO BID 08/22/18 [History] Melatonin [Melatin] 3 mg PO HS 08/22/18 [History] Multivit-Min/FA/Lycopen/Lutein [A Thru Z Select Multivit Tab] 1 tab PO DAILY 10/28 [History] Sulfamethoxazole/Trimeth DS [Bactrim DS] 1 tab PO BID 08/22/18 [History] 3 Allergy/AdvReac Type Severity Reaction Status Date / Time No Known Allergies Allergy Verified 10/18/15 07:43 - Meds/Allergy Pre-op Review Medications Reviewed: Yes Allergies Reviewed: Yes Beta Blockers on Current Med List: No Anesthesia Results - Labs 08/26/18 05:38 08/26/18 05:38 Laboratory Tests 05/30/18 07/31/18 08/26/18 06:30 13:30 05:38 Est GFR (Non-Af Amer) > 60 Glucose 156 H Est Mean Plasma Glucose 140 Hemoglobin A1c 6.5 H Calcium 8.5 L Valproic Acid 23 L - Imaging EKG: report reviewed (84bpm - SINUS RHYTHM WITH SINUS ARRHYTHMIA Electronically Signed On 12-05-15 13:48:28 EST by Saleem Vaughn) Anesthesia Exam Vital Signs Temp Pulse Resp BP Pulse Ox 08/26/18 15:55 98.4 F 76 18 138/78 98 08/26/18 10:40 98.2 F 72 15 139/77 93 08/26/18 09:14 91 08/26/18 08:00 98.8 F 69 18 137/63 91 08/26/18 07:41 18 95 08/26/18 05:02 98.1 F 80 17 122/72 96 08/25/18 23:54 98.1 F 73 16 118/72 91 08/25/18 19:44 18 92 Intake and Output 08/26/18 08/26/18 08/26/18 07:59 15:59 23:59 Intake Total 100 / 100 394.3 / 394.3 100 / 100 Output Total 300 / 300 200 / 200 Balance -200 / -200 194.3 / 194.3 100 / 100 Intake: IV Fluids 100 / 100 394.3 / 394.3 100 / 100 Zosyn 3.375 GM In 0.9 % Sodium 100 / 100 144.3 / 144.3 0 / 0 Chloride (Mini-Bag +) 100 ML @ 25 mls/hr IVPB Q8H [facility] Rx#: [id number] Rocephin 2,000 MG In 0.9 % 100 / 100 Sodium Chloride (Mini-Bag +) 100 ML @ 200 mls/hr IVPB Q24H [facility] Rx#:[id number] Output: Urine 300 / 300 200 / 200 Other: Stool Size Small Stool Consistency soft Stool Color Brown # Voids 1 2 Blood Glucose* 112 Height: 5'8" Weight: 173# BMI = 26 NPO (# of Hours): MNOc - HEENT Pupil (Motor): Pupils equal, EOMI Mallampati: III Teeth: Normal, Missing Denture Type: Upper: Complete - BOOM MAN LOC: Confused BOOM MAN Motor: Normal RUE, Normal LUE, Normal RLE, Normal LLE, Normal Face BOOM MAN Sensory: Normal: RUE, LUE, RLE, LLE, Face - Cardiac Rhythm: Regular Murmur: None - Pulmonary Breath Sounds: bilateral Clear Respiratory Effort: Symmetrical Anesthesia Assess/Plan ASA Score: 3 (Dementia, Schizophrenia, COPD, Smoker) Modified Gleason Scale for Level of Consciousness: Cooperative, oriented, and tranquil (Pt cooperative, tranquil, possibly confused - Consent waived as case was deemed Emergent/necessary to save life or limb by Dr. Dominguez.) Anesthetic Plan: General Monitoring Plan: Standard Monitors Recovery Plan: PACU Anes Supervising Prov Stmt: PT seen/evaluated, R&B Discussed, questions answered and consent obtained. Michelle Waite MD
[2018-08-26] MEDS ORDERED: Dexamethasone 4 MG/ML VIAL ONE (18:58)
[2018-08-26] MEDS ORDERED: Ondansetron 4 MG/2 ML VIAL ONE (18:58)
[2018-08-26] MEDS ORDERED: Lidocaine -MPF 2% 2 ML VIAL ONE ×2 (18:58)
[2018-08-26] MEDS ORDERED: *HR* FentaNYL (PF) 100 MCG/2 ML VIAL ONE (18:58)
[2018-08-26] MEDS ORDERED: *HR* Propofol 200 MG/20 ML VIAL IVP ONE (18:58)
--- NOTE | 2018-08-26 19:14 | Orthopedics Progress Note ---
Date of Encounter: 08/26/18 Time of Encounter: 19:10 - Assessment and Plan (1) Cellulitis of left hand Current Visit: Yes Status: Acute Subjective Principal diagnosis: Right hand abscess with index finger necrotizing infection Interval history: S: The patient was seen in the preoperative holding area Expected pain to the left hand O: Afebrile on the vital signs are stable Persistent cellulitis to the left hand Persistent swelling to the left hand Continued purulence from the proximal portion of the wound He can grossly flex and extend the residual digits with some pain due to pain and swelling The fingertips are all grossly sensate and well-perfused, and the radial artery pulse is 2+. A: Post left index ray resection for soft tissue infection P: I did attempt to get consent over the phone from the power of deputy attorney general for surgery, however I was unable to reach her after multiple attempts. Likewise the anesthesiologist, Dr. Oconnell, was unable to reach the power of deputy attorney general. Given concern for persistent cellulitis with purulent drainage despite IV antibiotics in the face of a necrotizing soft tissue infection I declare this an emergency to be performed without consent from the power of deputy attorney general in order to reduce risk of ongoing damage threatening the patient's life and limb. Therefore we will proceed to the operating room for debridement and irrigation of the left hand. Objective Vital signs: Vital Signs Temp Pulse Resp BP Pulse Ox 08/26/18 15:55 98.4 F 76 18 138/78 98 08/26/18 10:40 98.2 F 72 15 139/77 93 08/26/18 09:14 91 08/26/18 08:00 98.8 F 69 18 137/63 91 08/26/18 07:41 18 95 08/26/18 05:02 98.1 F 80 17 122/72 96 08/25/18 23:54 98.1 F 73 16 118/72 91 08/25/18 19:44 18 92 Intake and Output 08/26/18 08/26/18 08/26/18 07:59 15:59 23:59 Intake Total 100 / 100 394.3 / 394.3 100 / 100 Output Total 300 / 300 200 / 200 Balance -200 / -200 194.3 / 194.3 100 / 100 Intake: IV Fluids 100 / 100 394.3 / 394.3 100 / 100 Zosyn 3.375 GM In 0.9 % Sodium 100 / 100 144.3 / 144.3 0 / 0 Chloride (Mini-Bag +) 100 ML @ 25 mls/hr IVPB Q8H [facility] Rx#: [id number] Rocephin 2,000 MG In 0.9 % 100 / 100 Sodium Chloride (Mini-Bag +) 100 ML @ 200 mls/hr IVPB Q24H [facility] Rx#:[id number] Output: Urine 300 / 300 200 / 200 Other: Stool Size Small Stool Consistency soft Stool Color Brown # Voids 1 2 Blood Glucose* 112 - Labs CBC & BMP: 08/26/18 05:38 08/26/18 05:38 Labs: Abnormal lab results RBC 3.00 M/mcL (4.19-5.50) L 08/26/18 05:38 Hgb 10.4 g/dL (12.9-16.9) L 08/26/18 05:38 Hct 30.6 % (37.5-50.1) L 08/26/18 05:38 MCV 102.0 fL (83.0-100.0) H 08/26/18 05:38 MCH 34.7 pg (28.0-33.3) H 08/26/18 05:38 RDW 15.6 % (11.5-14.5) H 08/26/18 05:38 Plt Count 85 K/mcL (140-400) L 08/26/18 05:38 Band Neutrophils % 6.0 % (0-4) H 08/22/18 14:35 Metamyelocytes % 2.0 % (0) H 08/22/18 14:35 Myelocytes % 2.0 % (0) H 08/22/18 14:35 Nucleated RBCs/100 WBC 0.4 /100 WBC (0) H 08/26/18 05:38 Reactive Lymphocytes Present (Not Present) A 08/23/18 00:56 Platelet Estimate Decreased (Normal) L 08/23/18 00:56 Large Platelets Present (Not Present) A 08/23/18 00:56 Immature Plt Fraction 15.8 % (1.1-6.1) H 08/26/18 05:38 Anisocytosis 1+ (Not Present) A 08/22/18 14:35 ESR 65 mm/hr (0-10) H 08/26/18 05:38 Sodium 128 mEq/L (136-145) L 08/26/18 05:38 Chloride 96 mEq/L (98-107) L 08/26/18 05:38 Creatinine 0.55 mg/dL (0.70-1.30) L 08/26/18 05:38 Glucose 156 mg/dL (70-105) H 08/26/18 05:38 POC Glucose 128 mg/dL (70-99) H 08/26/18 10:43 Calculated Osmolality 268 (280-300) L 08/26/18 05:38 Calcium 8.5 mg/dL (8.6-10.3) L 08/26/18 05:38 C-Reactive Protein 53 mg/L (Less than 10) H 08/26/18 05:38 Serum Total Protein 5.8 g/dL (6.4-8.9) L 08/25/18 03:24 Albumin 2.9 g/dL (3.5-5.7) L 08/25/18 03:24 Albumin/Globulin Ratio 1.0 (1.1-2.2) L 08/25/18 03:24 Consult Discharge Plan - Plan Referrals: Anson Mehta MD [Primary Care Provider] - Mena Arrieta CNP [Advanced Practice Nurse] - 09/11/18 9:20 am
[2018-08-26] MEDS ORDERED: Vancomycin 1,000 MG VIAL ONE (19:45)
[2018-08-26] MEDS ORDERED: *HR* OxyCODONE Immed Rel 5 MG TABLET PO PRN (20:16)
--- NOTE | 2018-08-26 20:20 | Orthopedic Operative Note ---
Date of procedure: 08/26/18 Procedure: OPERATIVE REPORT SURGEON: Isaac Dominguez MD PREOPERATIVE DIAGNOSIS: Persistent left dorsal hand cellulitis and abscess POSTOPERATIVE DIAGNOSIS: Same PROCEDURE: Second look incision, drainage, irrigation, debridement of the left dorsal hand ANESTHESIA: General anesthesia SPECIMENS: Swabs for aerobic, anaerobic, acid-fast, and fungal PREOPERATIVE NOTE The surgical plan was reviewed with the patient. The risks, benefits, alternatives, and potential complications of this procedure were discussed with the patient including injury to veins, arteries, nerves, tendons, ligaments, and bone. Also discussed were the risks of infection, bleeding, pain, blood clots, the possible need for a blood transfusion, the possible need for further procedures, heart attack, stroke, and . Additional risks include persistent infection requiring further debridement and irrigation. All of this was explained in simple terms, and the patient verbalized understanding and wished to proceed. Consent was given to proceed with surgery. PROCEDURE: The patient was seen in the preoperative holding area where the identify and the consent were confirmed. The left hand was marked. Final questions were answered. The patient was brought back to the operating room and placed supine on the operating room table. A huddle was performed with the patient and all vital surgical team members confirming patient identity, the correct procedure, and the correct operative site. Gen. anesthesia was administered. The operative extremity was prepped and draped in the usual sterile fashion. A surgical time out was performed immediately preceding the incision with all personnel in the operating room to confirm patient identity, the correct operative site and extremity, correct radiographic studies, availability of appropriate surgical equipment, and agreement on the planned procedure. The tourniquet was inflated without exsanguination. The old stitches were removed and the wound was spread open. Immediately decompressed proximally was a pocket of grossly purulent material within the subcutaneous tissue. This was fully decompressed and necrotic fat was excised. The fascia was opened in the distal dorsal wrist area and retinaculum and the extensor tendons were clean without concern for deep infection. The remaining tissue was viable and healthy in appearance. The wound was irrigated with 6 L of saline and very loosely closed with nylon stitches over a Coy drain. Tourniquet was deflated and a soft, sterile dressing was applied. The instrument, sponge, and needle counts were correct after wound closure. POST OPERATIVE PLAN: Continue IV antibiotics and follow cultures. Was there an assurance assistant present: No Estimated blood loss (cc): 1
--- NOTE | 2018-08-26 20:45 | Anesthesia Evaluation Post Op ---
Date of Encounter: 08/26/18 Time of Encounter: 20:43 - Vital Signs Vital Signs: Vital Signs/O2 Sat, Most Current Temp Pulse Resp BP Pulse Ox 100.1 F H 100 18 142/85 97 08/26/18 20:42 08/26/18 20:42 08/26/18 20:42 08/26/18 20:42 08/26/18 20:42 - Lungs Lungs: Clear Ascult./Percussion - Airway Airway: Non-obstructed - Cardiovascular Regular Rate - Mental Status Mental Status: Alert & Oriented, Answers Appropriately - Pain Pain Scale: 5 Pain Scale used: Numeric (1 - 10) - Nausea Vomiting Nausea Vomiting: Not Present - Hydration Hydration: Tolerates oral liquids, Has not voided - Discharge PostOp Status: Transfer Patient to floor
[2018-08-26] MEDS: Melatonin 3 MG TABLET PO SCH (21:46)
[2018-08-26] MEDS: Divalproex (24 HR) 500 MG TABLET PO SCH (21:57)
[2018-08-27] MEDS ORDERED: Ringers Solution, Lactated 500 ML IVC ONE (00:40)
[2018-08-27 05:46] LABS: Red Cell Distribution Width 15.8 % (11.5-14.5)
[2018-08-27 05:47] LABS: Basophils % 0.2 %; Hematocrit 29.7 % (37.5-50.1); Hemoglobin 10.1 g/dL (12.9-16.9); Immature Granulocytes % 1.2 % (0-4); Immature Platelets 16.1 % (1.1-6.1); Lymphocytes # 1.6 K/mcL (0.6-4.6); Lymphocytes % 17.6 %; Mean Corpuscular Hemoglobin 35.2 pg (28.0-33.3); Mean Corpuscular Volume 103.5 fL (83.0-100.0); Mean Platelet Volume 11.4 fL (9.4-12.4); Monocytes # 0.6 K/mcL (0.0-1.3); Monocytes % 5.9 %; Nucleated Red Blood Cells 0.3 /100 WBC (0); Red Blood Count 2.87 M/mcL (4.19-5.50); Segmented Neutrophils % 75.1 %
[2018-08-27 06:37] LABS: BUN/Creatinine Ratio 22 (6-26); Blood Urea Nitrogen 15 mg/dL (8-23); Calcium 8.8 mg/dL (8.6-10.3); Carbon Dioxide 23 mEq/L (23-29); Chloride 96 mEq/L (98-107); Glucose 207 mg/dL (70-105); Osmolality,Calculated 275 (280-300); Sodium 129 mEq/L (136-145); eGFR For Non-African Americans > 60 (> 60)
[2018-08-27 06:43] LABS: Platelet Count 91 K/mcL (140-400)
[2018-08-27 06:49] LABS: Platelet Estimate Slight Decrease (Normal)
--- NOTE | 2018-08-27 07:49 | Orthopedics Progress Note ---
Date of Encounter: 08/27/18 Time of Encounter: 07:47 - Assessment and Plan (1) Cellulitis of left hand Current Visit: Yes Status: Acute Subjective Principal diagnosis: Left hand abscess with index finger necrotizing infection Interval history: S: Expected pain to the left hand O: Afebrile on the vital signs are stable Improved swelling and erythema to the left hand Coy drain intact Minimal drainage He can grossly flex and extend the residual digits with limitation due to pain The fingertips are all grossly sensate and well-perfused, and the radial artery pulse is 2+. A: Post left index ray resection for soft tissue infection Post second look I&D P: IV antibiotics per the primary team Continue elevation Motion exercises to the left hand Likely removal Ashley drain tomorrow Objective Vital signs: Vital Signs Temp Pulse Resp BP Pulse Ox 08/27/18 07:00 97.6 F 86 18 116/69 100 08/27/18 04:15 97.9 F 113 16 107/73 93 08/27/18 04:02 108 08/26/18 23:46 99.2 F 114 18 139/83 94 08/26/18 22:54 99.5 F 115 16 129/82 95 08/26/18 22:00 98.6 F 106 16 146/87 95 08/26/18 21:53 18 94 08/26/18 21:31 97.5 F L 103 16 144/85 96 08/26/18 21:06 97.9 F 99 16 147/83 96 08/26/18 20:42 100.1 F H 100 18 142/85 97 08/26/18 20:27 99.4 F 101 18 147/91 96 08/26/18 20:17 105 16 154/0 96 08/26/18 20:07 104 14 151/86 96 08/26/18 19:57 98.8 F 110 12 167/90 99 08/26/18 15:55 98.4 F 76 18 138/78 98 08/26/18 10:40 98.2 F 72 15 139/77 93 08/26/18 09:14 91 08/26/18 08:00 98.8 F 69 18 137/63 91 Intake and Output 08/26/18 08/26/18 08/27/18 15:59 23:59 07:59 Intake Total 394.3 / 394.3 100 / 100 Output Total 200 / 200 102 / 102 Balance 194.3 / 194.3 -2 / -2 Intake: IV Fluids 394.3 / 394.3 100 / 100 Zosyn 3.375 GM In 0.9 % Sodium 144.3 / 144.3 0 / 0 Chloride (Mini-Bag +) 100 ML @ 25 mls/hr IVPB Q8H [facility] Rx#: [id number] Rocephin 2,000 MG In 0.9 % 100 / 100 Sodium Chloride (Mini-Bag +) 100 ML @ 200 mls/hr IVPB Q24H [facility] Rx#:[id number] Output: Urine 200 / 200 100 / 100 Estimated Blood Loss 2 / 2 Other: Stool Size Small Moderate Stool Consistency soft formed Stool Characteristics Normal for Patient Stool Color Brown Brown # Voids 2 1 1 # Bowel Movements 1 Blood Glucose* 112 84 155 - Labs CBC & BMP: 08/27/18 05:32 08/27/18 05:32 Labs: Abnormal lab results RBC 2.87 M/mcL (4.19-5.50) L 08/27/18 05:32 Hgb 10.1 g/dL (12.9-16.9) L 08/27/18 05:32 Hct 29.7 % (37.5-50.1) L 08/27/18 05:32 MCV 103.5 fL (83.0-100.0) H 08/27/18 05:32 MCH 35.2 pg (28.0-33.3) H 08/27/18 05:32 RDW 15.8 % (11.5-14.5) H 08/27/18 05:32 Plt Count 91 K/mcL (140-400) L 08/27/18 05:32 Band Neutrophils % 6.0 % (0-4) H 08/22/18 14:35 Metamyelocytes % 2.0 % (0) H 08/22/18 14:35 Myelocytes % 2.0 % (0) H 08/22/18 14:35 Nucleated RBCs/100 WBC 0.3 /100 WBC (0) H 08/27/18 05:32 Reactive Lymphocytes Present (Not Present) A 08/23/18 00:56 Platelet Estimate Slight Decrease (Normal) L 08/27/18 05:32 Large Platelets Present (Not Present) A 08/23/18 00:56 Immature Plt Fraction 16.1 % (1.1-6.1) H 08/27/18 05:32 Anisocytosis 1+ (Not Present) A 08/22/18 14:35 ESR 66 mm/hr (0-10) H 08/27/18 05:32 Sodium 129 mEq/L (136-145) L 08/27/18 05:32 Chloride 96 mEq/L (98-107) L 08/27/18 05:32 Creatinine 0.69 mg/dL (0.70-1.30) L 08/27/18 05:32 Glucose 207 mg/dL (70-105) H 08/27/18 05:32 POC Glucose 128 mg/dL (70-99) H 08/26/18 10:43 Calculated Osmolality 275 (280-300) L 08/27/18 05:32 C-Reactive Protein 53 mg/L (Less than 10) H 08/26/18 05:38 Serum Total Protein 5.8 g/dL (6.4-8.9) L 08/25/18 03:24 Albumin 2.9 g/dL (3.5-5.7) L 08/25/18 03:24 Albumin/Globulin Ratio 1.0 (1.1-2.2) L 08/25/18 03:24 Consult Discharge Plan - Plan Referrals: Anson Mehta MD [Primary Care Provider] - Mena Arrieta CNP [Advanced Practice Nurse] - 09/11/18 9:20 am
[2018-08-27] MEDS: Budesonide/Formoterol 160/4.5 1 PUFF INH IH SCH ×2 (07:50→19:57)
[2018-08-27] MEDS: Famotidine 20 MG TABLET PO SCH ×2 (08:26→17:59)
[2018-08-27] MEDS: Insulin LISPRO 300 UNITS/3 ML VIAL SQ SCH ×4 (08:26→23:10)
[2018-08-27] MEDS: metroNIDAZOLE 500 MG TABLET PO SCH ×3 (08:26→23:06)
[2018-08-27] MEDS: *HR* LORazepam 0.5 MG TABLET PO SCH (08:26)
[2018-08-27] MEDS: *HR* Heparin 5,000 UNIT/ML VIAL SQ SCH ×3 (08:27→23:06)
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
[2018-08-27] MEDS: cefTRIAXone 2,000 MG in 0.9 % Sodium Chloride Mini Bag 100 ML IVPB SCH (15:00)
[2018-08-27] MEDS: Melatonin 3 MG TABLET PO SCH (23:06)
[2018-08-27] MEDS: Divalproex (24 HR) 500 MG TABLET PO SCH (23:06)
[2018-08-28] MEDS: Budesonide/Formoterol 160/4.5 1 PUFF INH IH SCH ×2 (07:42→21:20)
[2018-08-28 11:41] LABS: Basophils % 0.1 %; Eosinophils # 0.1 K/mcL (0.0-0.6); Eosinophils % 0.6 %; Hematocrit 28.2 % (37.5-50.1); Hemoglobin 9.5 g/dL (12.9-16.9); Immature Granulocytes % 0.5 % (0-4); Immature Platelets 16.5 % (1.1-6.1); Lymphocytes # 2.7 K/mcL (0.6-4.6); Lymphocytes % 34.1 %; Mean Corpuscular HGB Conc 33.7 g/dL (31.6-35.5); Mean Corpuscular Hemoglobin 35.4 pg (28.0-33.3); Mean Corpuscular Volume 105.2 fL (83.0-100.0); Mean Platelet Volume 11.7 fL (9.4-12.4); Monocytes # 0.6 K/mcL (0.0-1.3); Monocytes % 7.4 %; Neutrophils # 4.5 K/mcL (1.6-8.9); Nucleated Red Blood Cells 0.3 /100 WBC (0); Red Blood Count 2.68 M/mcL (4.19-5.50); Segmented Neutrophils % 57.3 %
[2018-08-28 12:22] LABS: BUN/Creatinine Ratio 15 (6-26); Blood Urea Nitrogen 10 mg/dL (8-23); Calcium 8.3 mg/dL (8.6-10.3); Carbon Dioxide 25 mEq/L (23-29); Chloride 96 mEq/L (98-107); Glucose 199 mg/dL (70-105); Osmolality,Calculated 271 (280-300); Potassium 4.2 mEq/L (3.5-5.1); Sodium 128 mEq/L (136-145); eGFR For Non-African Americans > 60 (> 60)
[2018-08-28] MEDS: Insulin LISPRO 300 UNITS/3 ML VIAL SQ SCH ×3 (12:35→23:11)
[2018-08-28 13:02] LABS: Platelet Count 84 K/mcL (140-400)
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
[2018-08-28] MEDS: cefTRIAXone 2,000 MG in 0.9 % Sodium Chloride Mini Bag 100 ML IVPB SCH (15:05)
[2018-08-28] MEDS: metroNIDAZOLE 500 MG TABLET PO SCH ×2 (15:07→23:12)
[2018-08-28] MEDS ORDERED: metroNIDAZOLE 500 MG TABLET PO ONE (16:47)
[2018-08-28] MEDS ORDERED: *HR* LORazepam 0.5 MG TABLET PO ONE (16:47)
[2018-08-28] MEDS ORDERED: *HR* Heparin 5,000 UNIT/ML VIAL IVP ONE (16:47)
[2018-08-28] MEDS ORDERED: Famotidine 20 MG TABLET PO ONE (16:47)
[2018-08-28] MEDS: Famotidine 20 MG TABLET PO SCH (17:39)
[2018-08-28] MEDS: *HR* Heparin 5,000 UNIT/ML VIAL SQ SCH ×2 (17:41→23:13)
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
--- NOTE | 2018-08-28 18:11 | Orthopedics Progress Note ---
Date of Encounter: 08/28/18 Time of Encounter: 18:09 - Assessment and Plan (1) Cellulitis of left hand Current Visit: Yes Status: Acute Subjective Principal diagnosis: Left hand abscess with index finger necrotizing infection Interval history: S: Expected pain to the left hand O: Afebrile on the vital signs are stable Improved swelling and erythema to the left hand Coy drain intact Moderate drainage drainage without purulence He can grossly flex and extend the residual digits with limitation due to pain The fingertips are all grossly sensate and well-perfused, and the radial artery pulse is 2+. A: Post left index ray resection for soft tissue infection Post second look I&D P: IV antibiotics per the primary team Continue elevation Motion exercises to the left hand Due to continued moderate drainage I did keep the Telferner drain intact. Objective Vital signs: Vital Signs Temp Pulse Resp BP Pulse Ox 08/28/18 14:28 97.1 F L 79 16 118/75 98 08/28/18 07:42 20 98 08/28/18 00:45 97.4 F L 80 16 150/72 96 08/27/18 19:57 16 98 08/27/18 19:13 97.7 F 82 17 138/76 98 Intake and Output 08/28/18 08/28/18 08/28/18 07:59 15:59 23:59 Other: # Voids 1 Weight 79 kg Blood Glucose* 210 Patient Weight 08/28/18 23:59 Weight 79 kg - Labs CBC & BMP: 08/28/18 03:30 08/28/18 03:30 Labs: Abnormal lab results RBC 2.68 M/mcL (4.19-5.50) L 08/28/18 03:30 Hgb 9.5 g/dL (12.9-16.9) L 08/28/18 03:30 Hct 28.2 % (37.5-50.1) L 08/28/18 03:30 MCV 105.2 fL (83.0-100.0) H 08/28/18 03:30 MCH 35.4 pg (28.0-33.3) H 08/28/18 03:30 RDW 16.0 % (11.5-14.5) H 08/28/18 03:30 Plt Count 84 K/mcL (140-400) L 08/28/18 03:30 Band Neutrophils % 6.0 % (0-4) H 08/22/18 14:35 Metamyelocytes % 2.0 % (0) H 08/22/18 14:35 Myelocytes % 2.0 % (0) H 08/22/18 14:35 Nucleated RBCs/100 WBC 0.3 /100 WBC (0) H 08/28/18 03:30 Reactive Lymphocytes Present (Not Present) A 08/23/18 00:56 Platelet Estimate Slight Decrease (Normal) L 08/27/18 05:32 Large Platelets Present (Not Present) A 08/23/18 00:56 Immature Plt Fraction 16.5 % (1.1-6.1) H 08/28/18 03:30 Anisocytosis 1+ (Not Present) A 08/22/18 14:35 ESR 66 mm/hr (0-10) H 08/27/18 05:32 Sodium 128 mEq/L (136-145) L 08/28/18 03:30 Chloride 96 mEq/L (98-107) L 08/28/18 03:30 Creatinine 0.67 mg/dL (0.70-1.30) L 08/28/18 03:30 Glucose 199 mg/dL (70-105) H 08/28/18 03:30 POC Glucose 200 mg/dL (70-99) H 08/27/18 20:35 Calculated Osmolality 271 (280-300) L 08/28/18 03:30 Calcium 8.3 mg/dL (8.6-10.3) L 08/28/18 03:30 C-Reactive Protein 79 mg/L (Less than 10) H 08/27/18 05:32 Serum Total Protein 5.8 g/dL (6.4-8.9) L 08/25/18 03:24 Albumin 2.9 g/dL (3.5-5.7) L 08/25/18 03:24 Albumin/Globulin Ratio 1.0 (1.1-2.2) L 08/25/18 03:24 Consult Discharge Plan - Plan Referrals: Anson Mehta MD [Primary Care Provider] - Mena Arrieta CNP [Advanced Practice Nurse] - 09/11/18 9:20 am
[2018-08-28] MEDS: Melatonin 3 MG TABLET PO SCH (23:11)
[2018-08-28] MEDS: Divalproex (24 HR) 500 MG TABLET PO SCH (23:12)
[2018-08-29 06:51] LABS: Eosinophils % 0.5 %; Hemoglobin 10.3 g/dL (12.9-16.9); Red Cell Distribution Width 15.9 % (11.5-14.5)
[2018-08-29 06:53] LABS: Basophils % 0.2 %; Hematocrit 31.4 % (37.5-50.1); Immature Granulocytes % 0.8 % (0-4); Immature Platelets 15.9 % (1.1-6.1); Lymphocytes % 33.9 %; Mean Corpuscular HGB Conc 32.8 g/dL (31.6-35.5); Mean Corpuscular Hemoglobin 34.6 pg (28.0-33.3); Mean Corpuscular Volume 105.4 fL (83.0-100.0); Mean Platelet Volume 10.4 fL (9.4-12.4); Monocytes # 0.7 K/mcL (0.0-1.3); Monocytes % 7.8 %; Nucleated Red Blood Cells 0.2 /100 WBC (0); Red Blood Count 2.98 M/mcL (4.19-5.50); Segmented Neutrophils % 56.8 %
[2018-08-29 07:08] LABS: Neutrophils # 5.1 K/mcL (1.6-8.9); Platelet Count 82 K/mcL (140-400)
[2018-08-29 07:09] LABS: Alanine Aminotransferase 49 Units/L (7-52); Albumin 3.3 g/dL (3.5-5.7); Albumin/Globulin Ratio 1.1 (1.1-2.2); Alkaline Phosphatase 50 Units/L (34-104); Aspartate Amino Transferase 24 Units/L (13-39); BUN/Creatinine Ratio 12 (6-26); Bilirubin,Total 0.4 mg/dL (0.3-1.0); Blood Urea Nitrogen 9 mg/dL (8-23); Calcium 8.9 mg/dL (8.6-10.3); Carbon Dioxide 24 mEq/L (23-29); Chloride 95 mEq/L (98-107); Glucose 145 mg/dL (70-105); Osmolality,Calculated 261 (280-300); Potassium 4.7 mEq/L (3.5-5.1); Sodium 125 mEq/L (136-145); Total Protein 6.3 g/dL (6.4-8.9); eGFR For Non-African Americans > 60 (> 60)
--- NOTE | 2018-08-29 07:38 | Orthopedics Progress Note ---
Date of Encounter: 08/29/18 Time of Encounter: 07:36 - Assessment and Plan (1) Cellulitis of left hand Current Visit: Yes Status: Acute Subjective Principal diagnosis: Left hand abscess with index finger necrotizing infection Interval history: S: Expected pain to the left hand O: Afebrile on the vital signs are stable Improved swelling and erythema to the left hand Coy drain removed Minimal drainage, serosanguinous He can grossly flex and extend the residual digits with limitation due to pain The fingertips are all grossly sensate and well-perfused, and the radial artery pulse is 2+. A: Post left index ray resection for soft tissue infection Post second look I&D P: IV antibiotics per the primary team Continue elevation Motion exercises to the left hand Anticipate discharge on IV abx Objective Vital signs: Vital Signs Temp Pulse Resp BP Pulse Ox 08/29/18 06:38 98.7 F 73 16 126/73 95 08/28/18 21:20 16 98 08/28/18 19:25 99.1 F 70 17 120/67 96 08/28/18 14:28 97.1 F L 79 16 118/75 98 08/28/18 07:42 20 98 Intake and Output 08/28/18 08/28/18 08/29/18 15:59 23:59 07:59 Intake Total 340 / 340 Balance 340 / 340 Intake: Oral 340 / 340 Other: Meal Dinner Percent of Meal Consumed 90% Stool Size Small Stool Consistency loose Stool Color Brown # Voids 2 Blood Glucose* 184 - Labs CBC & BMP: 08/29/18 06:16 08/29/18 06:16 Labs: Abnormal lab results RBC 2.98 M/mcL (4.19-5.50) L 08/29/18 06:16 Hgb 10.3 g/dL (12.9-16.9) L 08/29/18 06:16 Hct 31.4 % (37.5-50.1) L 08/29/18 06:16 MCV 105.4 fL (83.0-100.0) H 08/29/18 06:16 MCH 34.6 pg (28.0-33.3) H 08/29/18 06:16 RDW 15.9 % (11.5-14.5) H 08/29/18 06:16 Plt Count 82 K/mcL (140-400) L 08/29/18 06:16 Band Neutrophils % 6.0 % (0-4) H 08/22/18 14:35 Metamyelocytes % 2.0 % (0) H 08/22/18 14:35 Myelocytes % 2.0 % (0) H 08/22/18 14:35 Nucleated RBCs/100 WBC 0.2 /100 WBC (0) H 08/29/18 06:16 Reactive Lymphocytes Present (Not Present) A 08/23/18 00:56 Platelet Estimate Slight Decrease (Normal) L 08/27/18 05:32 Large Platelets Present (Not Present) A 08/23/18 00:56 Immature Plt Fraction 15.9 % (1.1-6.1) H 08/29/18 06:16 Anisocytosis 1+ (Not Present) A 08/22/18 14:35 ESR 63 mm/hr (0-10) H 08/29/18 06:16 Sodium 125 mEq/L (136-145) L 08/29/18 06:16 Chloride 95 mEq/L (98-107) L 08/29/18 06:16 Glucose 145 mg/dL (70-105) H 08/29/18 06:16 POC Glucose 184 mg/dL (70-99) H 08/28/18 19:51 Calculated Osmolality 261 (280-300) L 08/29/18 06:16 C-Reactive Protein 79 mg/L (Less than 10) H 08/27/18 05:32 Serum Total Protein 6.3 g/dL (6.4-8.9) L 08/29/18 06:16 Albumin 3.3 g/dL (3.5-5.7) L 08/29/18 06:16 Consult Discharge Plan - Plan Referrals: Anson Mehta MD [Primary Care Provider] - Mena Arrieta CNP [Advanced Practice Nurse] - 09/11/18 9:20 am
[2018-08-29] MEDS: Insulin LISPRO 300 UNITS/3 ML VIAL SQ SCH ×3 (09:38→16:27)
[2018-08-29] MEDS: *HR* Heparin 5,000 UNIT/ML VIAL SQ SCH ×2 (09:39→16:27)
[2018-08-29] MEDS: metroNIDAZOLE 500 MG TABLET PO SCH ×2 (09:39→14:20)
[2018-08-29] MEDS: *HR* LORazepam 0.5 MG TABLET PO SCH (09:39)
[2018-08-29] MEDS: Famotidine 20 MG TABLET PO SCH ×2 (09:40→16:27)
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
[2018-08-29] MEDS: Budesonide/Formoterol 160/4.5 1 PUFF INH IH SCH (11:02)
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
[2018-08-29] MEDS: cefTRIAXone 2,000 MG in 0.9 % Sodium Chloride Mini Bag 100 ML IVPB SCH (14:21)
--- NOTE | 2018-08-29 14:21 | Physician Discharge Referral ---
ExtendedCare Referral Info Transfer To: ECF Provider in Charge after Transfer: PCP Institutional Level of Care: Skilled - Diagnosis (1) Suppurative tenosynovitis of flexor tendon of left hand Priority: Primary Status: Acute (2) Cellulitis of left hand Priority: Secondary Status: Acute (3) Sepsis Priority: Secondary Status: Resolved (4) Fracture of right upper extremity Priority: Secondary Status: Chronic (5) Dementia of Alzheimer's type, with early onset, with depressed mood Priority: Secondary Status: Chronic (6) Hyponatremia Priority: Secondary Status: Chronic (7) Macrocytic anemia Priority: Secondary Status: Chronic (8) Tobacco abuse disorder Priority: Secondary Status: Chronic (9) DVT prophylaxis Priority: Secondary Status: Resolved Prognosis: Fair Aware of Diagnosis: Patient Aware of Prognosis: Patient - Transfer Medications Prescriptions: HYDROcodone/Acet 5/325 mg [[place] 5-325 mg] 1 tab PO Q6HR PRN 3 Days #12 tablet PRN Reason: Moderate Pain Home Medications: Divalproex (24 HR) [Depakote ER (24 HR)] 500 mg PO HS 10/18/15 [History] Acetaminophen [Tylenol] 650 mg PO Q6HR PRN 12/04/15 [History] Albuterol Sulfate [Ventolin Hfa] 2 puff IH Q6H PRN 12/04/15 [History] Haloperidol 1.5 mg PO TID 08/21/18 [History] Ibuprofen [Ibu] 800 mg PO Q8HR 08/21/18 [History] LORazepam [Ativan] 0.5 mg PO DAILY 08/21/18 [History] Lisinopril [Zestril] 5 mg PO DAILY 08/21/18 [History] Metformin HCl 500 mg PO DAILY 08/21/18 [History] Ranitidine HCl [Acid [employer]] 75 mg PO Q12H 08/21/18 [History] Sodium Chloride [Sodium Chloride Tab] 1 gm PO BID 08/21/18 [History] Fluticasone/Salmeterol [Advair 500-50 Diskus] 1 puff IH BID 08/22/18 [History] Gemfibrozil 600 mg PO BID 08/22/18 [History] Melatonin [Melatin] 3 mg PO HS 08/22/18 [History] Multivit-Min/FA/Lycopen/Lutein [A Thru Z Select Multivit Tab] 1 tab PO DAILY 10/12/18 [History] HYDROcodone/Acet 5/325 mg [[place] 5-325 mg] 1 tab PO Q6HR PRN 3 Days #12 tablet 08/29/18 [Rx] metroNIDAZOLE [Flagyl] 500 mg PO TID tablet 08/29/18 [Rx] Allergies/Adverse Reactions: Allergy/AdvReac Type Severity Reaction Status Date / Time No Known Allergies Allergy Verified 10/18/15 07:43 - Respiratory Orders Smoking Cessation: Smoking cessation has been advised. For more information, call the [place] Tobacco Quit Line at 7-987-KQRTNOW. CERTIFICATION: I certify that the transfer of the above named patient to an Extended Care Facility is necessary for the continuing treatment of the diagnosis listed. The above information is true and accurate reflection of patient's current condition. Confidential - Redisclosure prohibited without a patient's written consent.
[2018-08-29 16:09] VITALS: BP 129/83
== END 2018-08-29 16:48 | DRG 853 ==
LOC: 3NENU 16:17 → SUATTDRO 16:17
PROVIDERS: ADMIT Internal Medicine; ATTEND Family Medicine